=== PATIENT | female | born 1995 | race Caucasian/White ===

== ENCOUNTER → 2022-06-19 20:17 | Outpatient (ROUT) | payer BC, SELFPAY ==
[2022-06-19 20:32] LABS: Hemoglobin 12.7 g/dL (12.0-16.0); Mean Corpuscular HGB Conc 33.3 % (30-36); Mean Corpuscular Hemoglobin 30.3 PG (26-34); Mean Corpuscular Volume 90.8 fL (80-100); Platelet Count 290 X10^3/uL (150-400); Red Blood Cell Count 4.19 X10^6/uL (4.0-5.2); Red Cell Distribution Width 12.7 % (11.6-14.8); White Blood Cell Count 13.2 X10^3/uL (4.5-11.0)
[2022-06-20 20:22] LABS: HIV 1 & 2 Ab/Ag 4th Gen Combo NEGATIVE (NEGATIVE); Hepatitis B Surface Antigen NEGATIVE s/c (NEGATIVE); Rubella Antibody IgG 80.2 IU/mL (>15)
[2022-06-21 04:28] LABS: RPR Screen Non Reactive (Non Reactive)
[2022-06-21 10:18] LABS: Var-Zoster Immunity Screen 2031 index (Immune >165)
== END ==
PROVIDERS: Visit Provider Advanced Practice Midwife
DX: Z34.90 Encounter for supervision of normal pregnancy, unspecified, unspecified trimester (principal)
CPT/HCPCS: 85027; 86592; 86762; 86787; 86850; 86900; 86901; 87340; 87389; 87522

== ENCOUNTER 2023-01-06 14:11 | Inpatient (IN) | payer OTHER, SELFPAY ==
--- NOTE | 2023-01-06 14:19 | P.HPOB_ITS ---
OB HPI Date/Time Date of admission: 01/06/23 Date Patient Seen: 01/06/23 Time Patient Seen: 14:20 History of Present Condition Chief complaint: OBS OF LABOR Estimated Gestational Age (weeks): 39w0d : 1 Para: 0 Preadmission Labs Last OB Lab Results: Blood Type O Positive 06/19/22 15:00 Antibody Screen Negative 06/19/22 15:00 Hematocrit 38.0 % (36-46) 06/19/22 15:00 Hemoglobin 12.7 g/dL (12.0-16.0) 06/19/22 15:00 Hepatitis B Surface Antigen Negative s/c (NEGATIVE) 06/19/22 15 :00 Rubella Antibody 80.2 IU/mL (>15) 06/19/22 15:00
--- NOTE | 2023-01-06 14:44 | PM.OBHP.1 ---
OB HPI Date/Time Date of admission: 01/06/23 Date Patient Seen: 01/06/23 Time Patient Seen: 14:20 History of Present Condition Chief complaint: Preeclampsia : 1 Para: 0 Estimated Date of Delivery: 01/13/23 Estimated Gestational Age (weeks): 39w0d Narrative: Pau Renteria is a 27 year old female at 39w0d by sure LMP and concordant with 5 week and 10 week US. She is here for transfer of care from a planned home for labor management in the context of elevated blood pressures, increased proteinuria, denies headache, vision changes, right upper quadrant pain. Her CNM and SNMs will continue care. Her contractions have been consistent about every 3 minutes since 0400. Membranes intact, no leaking fluid or blood, she reports positive movement. She is coping well with the pain by breathing, position changes, and support from her Paul. She reports feeling so tired hungry and experiencing nausea. She had uncomplicated care with CNM established at 5 weeks. History of Present care: good care, initiated at week # (5), number of visits (10) and pounds weight gain (38) Dating criteria: LMP confirmed by 1st trimester US Ultrasounds: normal 1st trimester US and normal mid trimester US Obstetrical complications: preeclampsia Medical complications: none Preadmission Labs Blood type: O (+) positive -: Antibody screen: negative, Cystic fibrosis screen: unknown, GBS status: negative, HBsAG: negative, HIV: negative and RPR/VDLR: negative -: Chlamydia screen: not detected and Gonorrhea screen: not detected -: Rubella: immune and Varicella: immune HCT: 36.8 HCAB: negative Urine: Negative 1 hr GTT: 128 Narrative: 2nd trimester Hct 31, so initiated oral iron Prior (ies) History: Evaluation Evaluation Baseline heart rate: 135 Variability: Moderate (11-25) monitor accelerations: Present Monitor Decelerations: Absent Contraction Frequency (minutes): 3 Uterine Contraction Intensity: Strong/Firm Status: Category l Dilation (cm): 4 Effacement (%): 95 Dilation: 3-4 cm Effacement: >/=80% station: -1 Position of cervix: anterior Consistency: soft Sheriff score: 11 Comments: Cervical exam done at patient's home before transfer to hospital around 1300 PFSH Family History (Updated 01/06/23 @ 16:02 by Sherrie Kirkland CNM, DAVID) Grandfather Cancer Grandmother Heart disease Aunt Schizophrenia Social History (Updated 01/06/23 @ 16:03 by Sherrie Kirkland CNM, DAVID) marital status: household members: spouse and family lives independently: Yes caregiver/support person: No housing: house pets and animals: Yes (cat) education level: college occupational status: employed special francisco needs: No do you feel safe at home: Yes Smoking Status: Never smoker alcohol intake: never substance use type: does not use Meds Home Medications and Allergies Home Medications Medication Instructions Recorded Confirmed Type ferrous sulfate 142 mg (45 mg 142 mg PO DAILY 01/06/23 01/06/23 History iron) tablet,extended release (Slow Fe) no.58-iron bisglycinate 1 cap PO DAILY 01/06/23 01/06/23 History 10 mg iron-folic acid 400 mcg capsule Allergies Allergy/AdvReac Type Severity Reaction Status Date / Time No Known Drug Allergies Allergy Verified 01/06/23 15:55 Review of Systems Review of Systems Narrative: All WNL except what is discussed in HPI OB Exam Vital signs Blood Pressure: 134/81 Pulse Rate: 63 Temperature: 98.1 F Eyes General: appearance normal, both eyes and all related structures Resp Effort & Inspection: normal respiratory effort, able to speak in complete sentences and symmetric chest movement Auscultation: clear to auscultation bilaterally Cardio Rate: regular rate Rhythm: regular rhythm Heart Sounds: S1 normal and S2 normal Extremities Lower extremity: Yes normal to inspection and edema Laterality: bilateral DTR's: Rt Patellar: 2+ and Lt Patellar: 2+ External Female Exam: Yes normal external appearance Presentation: vertex Estimated Weight (lbs): 7 Amniotic Fluid: no fluid Objective Labs 01/06/23 22:25 01/06/23 22:25 Assessment and Plan Assessment and Plan Assessment and Plan narrative: A: G1PO at 39w0d Early labor Transfer of care from planned homebirth Preeclampsia without severe features GBS negative Rh positive Elevated WBC FHR Cat 1 P: Blood pressure checks Q4 Repeat labs at 2200 Continuous labor support Hydrotherapy, NO2, or theraputic rest as desired Continuous monitoring Expectant management of labor Anticipated NSVB
[2023-01-06 15:05] LABS: Add Manual Diff / Slide Review NO; Basophils Absolute Auto 100 /uL (0-100); Basophils Percent Auto 0.4 % (0-2); Eosinophils Absolute Auto 0 /uL (0-450); Hematocrit 34.4 % (36-46); Hemoglobin 11.8 g/dL (12.0-16.0); Lymphocytes Absolute Auto 1200 /uL (1100-4500); Lymphocytes Percent Auto 6.7 % (25-40); Mean Corpuscular HGB Conc 34.3 % (30-36); Mean Corpuscular Hemoglobin 31.4 PG (26-34); Mean Corpuscular Volume 91.7 fL (80-100); Monocytes Absolute Auto 700 /uL (0-900); Monocytes Percent Auto 3.6 % (3-14); Neutrophils Absolute Auto 16300 /uL (1500-7000); Neutrophils Percent Auto 89.3 % (50-75); Platelet Count 261 X10^3/uL (150-400); Red Blood Cell Count 3.76 X10^6/uL (4.0-5.2); Red Cell Distribution Width 13.2 % (11.6-14.8); White Blood Cell Count 18.2 X10^3/uL (4.5-11.0)
[2023-01-06 15:32] VITALS: BP 134/81
[2023-01-06 16:08] VITALS: BP 134/81; PULSE 63; TEMP 36.7
[2023-01-06] MEDS: ONDANSETRON 4 MG/2 ML INJ 8 MG IV ×2 (16:54→22:48)
--- NOTE | 2023-01-06 18:04 | P.CONS_ITS ---
History of Present Illness Consult details Date Patient Seen: 01/06/23 Time Patient Seen: 15:30 Chief complaint: Preeclampsia Reason for consult: Preeclampsia Requesting provider: Sherrie Kirkland Narrative: 27-year-old EDC 01/13/2023 now at 39 weeks by dates who was planning a home her director of gift planning but began having increasing blood pressures in early labor with no symptoms of preeclampsia but just ?not feeling right? and slight increase in proteinuria. Patient was transferred to Labor and delivery for monitoring for preeclampsia for her delivery. Meds Home Medications and Allergies Home Medications Medication Instructions Recorded Confirmed Type ferrous sulfate 142 mg (45 mg 142 mg PO DAILY 01/06/23 01/06/23 History iron) tablet,extended release (Slow Fe) no.58-iron bisglycinate 1 cap PO DAILY 01/06/23 01/06/23 History 10 mg iron-folic acid 400 mcg capsule Allergies Allergy/AdvReac Type Severity Reaction Status Date / Time No Known Drug Allergies Allergy Verified 01/06/23 15:55 Review of Systems Review of Systems Narrative: Per director of gift planning, patient denies headaches, scotomata, epigastric pain but just does not ?feel right?. She is had 1 episode of emesis and some mild nausea. Exam Vital Signs (past 8 hours): - 01/06/23 16:08 01/06/23 15:32 Temperature 98.1 F Pulse Rate 63 Blood Pressure 134/81 134/81 Narrative Exam Narrative: Patient has minimally elevated blood pressures. Fetus is vertex. Normal DTRs per director of gift planning. monitoring shows a baseline 130s with accelerations, no decelerations, Q 2-5 minute contractions of moderate quality. Admission cervical exam 3 cm, -1 station, intact bag of water. Objective Labs 01/06/23 14:25 Labs: Laboratory Results - last 24 hr 01/06/23 01/06/23 14:25 14:25 WBC 18.2 H RBC 3.76 L Hgb 11.8 L Hct 34.4 L MCV 91.7 MCH 31.4 MCHC 34.3 RDW 13.2 Plt Count 261 Neut % (Auto) 89.3 H Lymph % (Auto) 6.7 L Gaines % (Auto) 3.6 Eos % (Auto) 0.0 L Baso % (Auto) 0.4 Neut # (Auto) 08372 H Lymph # (Auto) 1200 Gaines # (Auto) 700 Eos # (Auto) 0 Baso # (Auto) 100 Blood Type O Positive Antibody Screen Negative PFSH Family History (Updated 01/06/23 @ 16:02 by Sherrie Kirkland CNM, [employer]) Grandfather Cancer Grandmother Heart disease Aunt Schizophrenia Social History marital status: household members: spouse and family lives independently: Yes caregiver/support person: No housing: house pets and animals: Yes (cat) education level: college occupational status: employed special francisco needs: No Safety do you feel safe at home: Yes Tobacco & Substance Use Smoking Status: Never smoker alcohol intake: never substance use type: does not use Assessment & Plan Assessment and plan (1) Pre-eclampsia affecting , antepartum: Status: Acute (2) 39 weeks gestation of : Status: Acute Assessment & Plan narrative: 39 week primigravida with increasing blood pressure during early labor with mild proteinuria but no other signs or symptoms of preeclampsia. At this point monitoring for worsening symptoms with planned vaginal delivery. No need for magnesium sulfate at this time. I will remain as biometrics consultant with Sherrie Kirkland CNM to remain as primary provider.
[2023-01-06] MEDS: LACTATED RINGERS 1,000 ML 1000 ML IV (18:14)
--- NOTE | 2023-01-06 18:22 | PM.OBPNLAB ---
Date/Time Date Patient Seen: 01/06/23 Time Patient Seen: 17:30 Pain Control Pain control: tolerating well and other (NO2) Comments: Pau is managing contractions well with NO2, breathing, and position changes with support of her at the bedside. She is feeling very tired. She has questions about epidural and labor augmentation interventions. Vitals BP: 143/84 Pulse: 65bpm Temp: 37.0*C SpO2: 98% Pelvic Exam Dilation (cm): 4.5 Effacement (%): 95 station: -1 Amniotic membrane status: Intact Contractions Contractions on admission: regular Monitor mode: External Contraction frequency (min): 3 Contraction pattern: Regular Contraction intensity: Strong/Firm Status status: Category l Heart Rate Baseline: 135 Monitor Accelerations: Present Monitor Decelerations: Absent Monitor Variability: Moderate Assessment and Plan Assessment: other (early labor) Plan: continuous present management Comments: A: at 39w0d Preeclampsia without severe features Patient desires epidural for pain management FHR Cat 1 Maternal exhaustion P: Call anesthesia to bedside to discuss combine spinal epidural Discussed r/b/a labor augmentation options: AROM and Pitocin Patient chooses Pitocin for labor augmentation Anticipate continuous labor management with Pitocin augmentation Begin Pitocin per protocol after patient is comfortable after epidural
--- NOTE | 2023-01-06 18:47 | PM.AN.REGBLK ---
Regional Block Pre-procedure Procedure: Continuous Lumbar Epidural for L&D Attending OB provider: Toño Dukes PMH/ROS narrative: Preeclampsia PSH/Anesthesia history narrative: None Exam narrative: WNL Labs: Hct 34.4 % (36-46) L 01/06/23 14:25 Plt Count 261 X10^3/uL (150-400) 01/06/23 14:25 Medications: Current Medications Generic Name Dose Route Start Last Admin Trade Name Freq PRN Reason Stop Dose Admin Calcium Carbonate 1,000 mg 01/06/23 14:51 Calcium Carbonate 500 Mg Tab PO Q4HR PRN Dyspepsia Carboprost Tromethamine 250 mcg 01/06/23 14:45 Carboprost 250 Mcg/Ml Ampul IM Q90M PRN Bleeding Fentanyl 100 mcg 01/06/23 14:45 Fentanyl 100 Mcg/2 Ml Inj IV Q1H PRN Pain, Severe (7-10) Hydralazine HCl 5 mg 01/06/23 15:20 Hydralazine 20 Mg/Ml Vial IV PRN PRN BP > 160/110 x2 Hydroxyzine HCl 50 mg 01/06/23 15:20 Hydroxyzine 50 Mg/Ml Inj IM PRN PRN Pain Management per Pt request Oxytocin/Lactated Ringer's 30 unit in 500 mls @ 200 mls/hr 01/06/23 14:45 Oxytocin Premix IV CONT PRN Bleeding Protocol Tranexamic Acid 1,000 mg/ 100 mls @ 200 mls/hr 01/06/23 14:45 Sodium Chloride IV NOW PRN Bleeding Lactated Ringer's 1,000 mls @ 1,000 mls/hr 01/06/23 18:13 01/06/23 18:14 Lactated Ringers IV 01/06/23 19:12 1,000 mls/hr NOW ONE Administration Labetalol HCl 20 mg 01/06/23 15:20 Labetalol 20 Mg/4 Ml Syringe IV PRN PRN BP > 160/110 x2 Lidocaine HCl 20 ml 01/06/23 14:45 Lidocaine 1% 20 Ml INJ INTRA-OP PRN Post Delivery Methylergonovine Maleate 0.2 mg 01/06/23 14:45 Methylergonovine 0.2 Mg Tablet PO Q6HR PRN Heavy Bleeding Methylergonovine Maleate 0.2 mg 01/06/23 14:45 Methylergonovine 0.2 Mg/Ml Vial IM NOW PRN Bleeding Misoprostol 800 mcg 01/06/23 14:45 Misoprostol 200 Mcg Tablet IA NOW PRN Bleeding Misoprostol 400 mcg 01/06/23 14:45 Misoprostol 200 Mcg Tablet SL NOW PRN Bleeding Morphine Sulfate 10 mg 01/06/23 15:20 Morphine 4 Mg/Ml Inj IM PRN PRN Pain Manaement per Pt request Naloxone HCl 0.2 mg 01/06/23 14:45 Naloxone 0.4 Mg/Ml Vial IV Q2MIN PRN Opiate Reversal Nifedipine 10 mg 01/06/23 15:25 Nifedipine 10 Mg Capsule PO PRN PRN BP>160/110 x2 Ondansetron HCl 8 mg 01/06/23 18:00 01/06/23 16:54 Ondansetron 4 Mg/2 Ml Inj IV 4 mg Q6HR JESÚS Administration Oxytocin 10 unit 01/06/23 14:45 Oxytocin 10 Unit/Ml Vial IM NOW PRN Bleeding Allergies: Allergies Allergy/AdvReac Type Severity Reaction Status Date / Time No Known Drug Allergies Allergy Verified 01/06/23 15:55 Procedure Insertion date: 01/06/23 Insertion time: 18:30 Prep/Local: betadine x3 and 1% lidocaine Interspace: L4-5 Patient position: sitting Needle: 18 gauge Malitead Loss of resistance with: air BABAR at (cm): 7 Catheter placed at SKIN (cm): 12 Catheter in SPACE (cm): 5 Initial Medications TEST DOSE time: 18:35 BOLUS DOSE time: 18:37 BOLUS DOSE (mL): 10 BOLUS DOSE med: 0.25% bupivacaine Infusion INFUSION: 0.125% bupivacaine and with fentanyl 2 mcg/mL Initial rate (mL/hr): 12 Post-procedure Anesthesia time START: 18:20
[2023-01-06] MEDS: OXYTOCIN PREMIX 30 UNIT/500 ML PLAST..BAG IV (19:59)
--- NOTE | 2023-01-06 22:13 | PM.OBPNLAB ---
Date/Time Date Patient Seen: 01/06/23 Time Patient Seen: 22:14 Pain Control Pain control: epidural Comments: Pau is resting comfortably with an epidural. The RN has been changing positions frequently and reports an unchanged cervical exam when pitocin started at 1999. Delay in pitocin administration due to pharmacy verification. Vitals BP: 90/55 Pulse: 66bpm Temp: 98.3 F RR: 16 SpO2: 98% Pelvic Exam Amniotic membrane status: Intact Comments: Not indicated at this time Contractions Monitor mode: External Pitocin rate (mU/min): 8 Contraction frequency (min): 3 (1-4min) Contraction duration (min): 1 (60-90 sec) Contraction pattern: Regular Contraction intensity: Strong/Firm Status status: Category l Heart Rate Baseline: 140 Monitor Accelerations: Present Monitor Decelerations: Absent Monitor Variability: Moderate Assessment and Plan Assessment: other (ongoing early labor management in the context of preeclampsia without severe features) Plan: continuous present management Comments: A: Term nullipara Early labor Preeclampsia without severe features Normotensive Epidural FHR Cat 1 P: Continuos labor management Reassess in 2 hours or sooner as indicated Anticipated NSVB
[2023-01-06 22:38] LABS: Add Manual Diff / Slide Review NO; Basophils Absolute Auto 100 /uL (0-100); Basophils Percent Auto 0.8 % (0-2); Eosinophils Absolute Auto 0 /uL (0-450); Eosinophils Percent Auto 0.1 % (2-4); Hemoglobin 10.9 g/dL (12.0-16.0); Lymphocytes Absolute Auto 2000 /uL (1100-4500); Lymphocytes Percent Auto 12.9 % (25-40); Mean Corpuscular HGB Conc 34.1 % (30-36); Mean Corpuscular Hemoglobin 31.6 PG (26-34); Mean Corpuscular Volume 92.8 fL (80-100); Monocytes Absolute Auto 1300 /uL (0-900); Neutrophils Absolute Auto 12500 /uL (1500-7000); Neutrophils Percent Auto 78.2 % (50-75); Platelet Count 236 X10^3/uL (150-400); Red Blood Cell Count 3.45 X10^6/uL (4.0-5.2); White Blood Cell Count 15.9 X10^3/uL (4.5-11.0)
[2023-01-06 22:48] LABS: Alanine Aminotransferase 17 IU/L (<35); Albumin 3.2 g/dL (3.5-5.0); Alkaline Phosphatase 152 U/L (38-126); Aspartate Aminotransferase 22 IU/L (14-36); BUN Creatinine Ratio 11.1 (6-22); Bilirubin Total 0.4 mg/dL (0.2-1.3); Blood Urea Nitrogen 7 mg/dL (7-17); Calcium 8.5 mg/dL (8.4-10.2); Carbon Dioxide 25 mmol/L (22-32); Chloride 104 mmol/L (98-107); Estimated Glomerular Filt Rate > 60 mL/min (>60); Globulin 3.2 g/dL (1.7-4.1); Glucose 88 mg/dL (70-100); HEMOLYSIS < 15 (0-50); Sodium 134 mmol/L (137-145); Total Protein 6.4 g/dL (6.3-8.2)
--- NOTE | 2023-01-06 23:06 | PM.OBPNLAB ---
Date/Time Date Patient Seen: 01/06/23 Time Patient Seen: 23:06 Pain Control Pain control: epidural Comments: Pau is resting comfortably on her right side with a peanut ball. Requested a cervical exam. Vitals: BP:116/75 Pulse: 74bpm SpO2: 100% Pelvic Exam Dilation (cm): 6 Effacement (%): 100 station: 0 Amniotic membrane status: Intact Contractions Monitor mode: External Pitocin rate (mU/min): 10 Contraction frequency (min): 3 (1-4min) Contraction duration (min): 1 Contraction pattern: Regular Contraction intensity: Strong/Firm Status status: Category l Heart Rate Baseline: 135 Monitor Accelerations: Present Monitor Decelerations: Absent Monitor Variability: Moderate Assessment and Plan Assessment: active labor Plan: continuous present management
[2023-01-07] MEDS: FENT 2MCG/ML BUPIV 0.125% EPI 200 MCG/100 ML PLAST..BAG 12 MCG EPIDURAL (00:42)
[2023-01-07 02:31] LABS: Creatinine Urine Random 52.9 mg/dL; Protein (Total) Urine Random 13 mg/dL (0-12); Protein Creatinine Ratio Urine 0.24 GRAM/24H
--- NOTE | 2023-01-07 03:06 | PM.OBPNLAB ---
Date/Time Date Patient Seen: 01/07/23 Time Patient Seen: 03:00 Pain Control Pain control: epidural Comments: CNM assumed care at 2300 and completed chart review. Pau was able to achieve pain relief with an additional epidural bolus and has been able to get some rest. Now feeling increased pressure lower down in her body. Paul remains supportive at her side. VS: BP 122/69, HR 75, T 98.1F Oral Pelvic Exam Dilation (cm): 10 Effacement (%): 100 station: 0 Amniotic membrane status: Leaking Comments: BBOW extending from vagina and draining clear fluid. Minimal movement of vertex with tiral push. Contractions Monitor mode: External Pitocin rate (mU/min): 17 Contraction frequency (min): 3 (1-4min) Contraction duration (min): 1 Contraction pattern: Regular Contraction intensity: Strong/Firm Status status: Category ll (overall reassuring) Heart Rate Baseline: 135 Monitor Accelerations: Present Monitor Decelerations: Variable Monitor Variability: Moderate Assessment and Plan Assessment: active labor Plan: continuous present management Comments: Labor down x 30 minutes and then begin pushing. Anticipate NSVB.
--- NOTE | 2023-01-07 04:39 | P.PCNOB_ITS ---
Events: Labor Augmentation Labor & Delivery Delivery date: 01/07/23 Intrapartal Events: Mild Preeclampsia Cervical ripening method: none Induction method: none Delivery augmentation: pitocin Delivery monitor: external FHT and external uterine Route of delivery: Episiotomy description: None L&D Laceration Description: Labial and Superficial Delivery repair: chromic (3.0) Quantitative Blood Loss: 150 Anesthesia Type: Epidural Narrative: Pushing initiated at C/C/+1. Kaytie pushed well with coaching and encouragement. Cat II FHR throughout second stage. NSVB of a viable baby boy in AYESHA position with copious terminal meconium. There was no nuchal cord and the shoulders delivered easily, without additional maneuvers. FOB and CNM with hands on at the . Allison was lifted to maternal abdomen by Pau and Paul for drying and stimulation. Apgars 7/9. Remaining 30 units of pitocin in 500mL LR was increased to 250mL/hr for active management of the third stage of labor. After cessation of pulsation, the cord was double clamped and cut. Cord blood sample was collected. Gentle cord traction and a single maternal push led to spontaneous, Schultze delivery of an pparently intact placenta, membranes and 3VC. Fundus immediately firm and bleeding minimal. Inspection of the vagina and perineum revealed bilateral 1st degree labial splits that were repaired with a single suture each, 3.0 chromic. QBL 150mL. Both mother and baby stable and skin to skin as I left the room. Allison Baby 1: gender: Male Presentation: vertex Position: Right Occiput Anterior Placenta delivery description: Spontaneous Cord Vessel Description: 3 Vessels score (1 min): 7 score (5 min): 8 weight: 3.819 kg Plan for aftercare: Routine care (with close monitoring of BPs )
[2023-01-07] MEDS: KETOROLAC 30 MG/ML VIAL IV (06:42)
--- NOTE | 2023-01-07 07:59 | PM.AN.REGBLK ---
Regional Block Pre-procedure Labs: Hct 32.0 % (36-46) L 01/06/23 22:25 Plt Count 236 X10^3/uL (150-400) 01/06/23 22:25 Medications: Current Medications Generic Name Dose Route Start Last Admin Trade Name Lionel PRN Reason Stop Dose Admin Acetaminophen 650 mg 01/07/23 05:21 Acetaminophen 325 Mg Tablet PO Q6HR PRN Pain, Mild (1-3) Benzocaine 1 spray 01/07/23 05:21 Dermoplast [place] 20% 60 Ml TOP Q1HR PRN perineal pain Carboprost Tromethamine 250 mcg 01/07/23 05:21 Carboprost 250 Mcg/Ml Ampul IM Q90MIN PRN Bleeding Emollient Ointment 1 applic 01/07/23 05:21 Lanolin Oint 7 Gm TOP PRN PRN Tenderness Tranexamic Acid 1,000 mg/ 100 mls @ 200 mls/hr 01/07/23 05:21 Sodium Chloride IV NOW PRN Bleeding Oxytocin/Lactated Ringer's 30 unit in 500 mls @ 200 mls/hr 01/07/23 05:21 Oxytocin Premix IV CONT PRN Bleeding Protocol Ibuprofen 600 mg 01/07/23 05:21 Ibuprofen 600 Mg Tablet PO Q6HR PRN Pain, Mild (1-3) Methylergonovine Maleate 0.2 mg 01/07/23 05:21 Methylergonovine 0.2 Mg/Ml Vial IM NOW PRN Bleeding Methylergonovine Maleate 0.2 mg 01/07/23 05:21 Methylergonovine 0.2 Mg Tablet PO Q6HR PRN Heavy bleeding Misoprostol 400 mcg 01/07/23 05:21 Misoprostol 200 Mcg Tablet SL NOW PRN Bleeding Misoprostol 1,000 mcg 01/07/23 05:21 Misoprostol 200 Mcg Tablet SD NOW PRN Bleeding Misoprostol 800 mcg 01/07/23 05:21 Misoprostol 200 Mcg Tablet SD NOW PRN Bleeding Naloxone HCl 0.2 mg 01/07/23 05:21 Naloxone 0.4 Mg/Ml Vial IV Q2MIN PRN Opiate Reversal Oxycodone HCl 5 mg 01/07/23 05:21 Oxycodone Ir 5 Mg Tablet PO Q4HR PRN Pain, Moderate (4-6) Oxytocin 10 unit 01/07/23 05:21 Oxytocin 10 Unit/Ml Vial IM NOW PRN Bleeding Rho Immune Globulin 1,500 unit 01/07/23 05:21 Rho(D) Immune Globulin 1,500 Unit Syringe IM NOW PRN Mom Rh neg, Rh pos Allergies: Allergies Allergy/AdvReac Type Severity Reaction Status Date / Time No Known Drug Allergies Allergy Verified 01/06/23 15:55 Post-procedure Anesthesia time START: 18:30 (01/06) Anesthesia time END: 04:11 (01/07) Post-procedure Anesthesia Assessment: Yes CV function: HR/BP stable, Yes Resp function: RR/sat/airway adequate, Yes Post-op hydration adequate, Yes Pain control adequate, Yes Nausea & vomiting absent, Yes Temperature > 36 C and Yes Mental status appropriate
--- NOTE | 2023-01-07 08:03 | PM.AN.REGBLK ---
Regional Block Pre-procedure Procedure: Continuous Lumbar Epidural for L&D Attending OB provider: Toño Dukes PMH/ROS narrative: Preeclamsia PSH/Anesthesia history narrative: None Exam narrative: WNL Labs: Hct 32.0 % (36-46) L 01/06/23 22:25 Plt Count 236 X10^3/uL (150-400) 01/06/23 22:25 Medications: Current Medications Generic Name Dose Route Start Last Admin Trade Name Freq PRN Reason Stop Dose Admin Acetaminophen 650 mg 01/07/23 05:21 Acetaminophen 325 Mg Tablet PO Q6HR PRN Pain, Mild (1-3) Benzocaine 1 spray 01/07/23 05:21 Dermoplast [place] 20% 60 Ml TOP Q1HR PRN perineal pain Carboprost Tromethamine 250 mcg 01/07/23 05:21 Carboprost 250 Mcg/Ml Ampul IM Q90MIN PRN Bleeding Emollient Ointment 1 applic 01/07/23 05:21 Lanolin Oint 7 Gm TOP PRN PRN Tenderness Tranexamic Acid 1,000 mg/ 100 mls @ 200 mls/hr 01/07/23 05:21 Sodium Chloride IV NOW PRN Bleeding Oxytocin/Lactated Ringer's 30 unit in 500 mls @ 200 mls/hr 01/07/23 05:21 Oxytocin Premix IV CONT PRN Bleeding Protocol Ibuprofen 600 mg 01/07/23 05:21 Ibuprofen 600 Mg Tablet PO Q6HR PRN Pain, Mild (1-3) Methylergonovine Maleate 0.2 mg 01/07/23 05:21 Methylergonovine 0.2 Mg/Ml Vial IM NOW PRN Bleeding Methylergonovine Maleate 0.2 mg 01/07/23 05:21 Methylergonovine 0.2 Mg Tablet PO Q6HR PRN Heavy bleeding Misoprostol 400 mcg 01/07/23 05:21 Misoprostol 200 Mcg Tablet SL NOW PRN Bleeding Misoprostol 1,000 mcg 01/07/23 05:21 Misoprostol 200 Mcg Tablet ID NOW PRN Bleeding Misoprostol 800 mcg 01/07/23 05:21 Misoprostol 200 Mcg Tablet ID NOW PRN Bleeding Naloxone HCl 0.2 mg 01/07/23 05:21 Naloxone 0.4 Mg/Ml Vial IV Q2MIN PRN Opiate Reversal Oxycodone HCl 5 mg 01/07/23 05:21 Oxycodone Ir 5 Mg Tablet PO Q4HR PRN Pain, Moderate (4-6) Oxytocin 10 unit 01/07/23 05:21 Oxytocin 10 Unit/Ml Vial IM NOW PRN Bleeding Rho Immune Globulin 1,500 unit 01/07/23 05:21 Rho(D) Immune Globulin 1,500 Unit Syringe IM NOW PRN Mom Rh neg, Rh pos Allergies: Allergies Allergy/AdvReac Type Severity Reaction Status Date / Time No Known Drug Allergies Allergy Verified 01/06/23 15:55 Procedure Insertion date: 01/06/23 Insertion time: 18:30 Prep/Local: betadine x3 and 1% lidocaine Interspace: L3-4 Patient position: sitting Needle: 18 gauge Malitead Loss of resistance with: air BABAR at (cm): 7 Catheter placed at SKIN (cm): 12 Catheter in SPACE (cm): 5 Initial Medications TEST DOSE time: 18:35 BOLUS DOSE time: 18:36 BOLUS DOSE (mL): 10 BOLUS DOSE med: 0.25% bupivacaine (Fentanyl 100mcg) Infusion INFUSION: 0.125% bupivacaine and with fentanyl 2 mcg/mL Initial rate (mL/hr): 12 Post-procedure Anesthesia time START: 18:30 (01/06) Anesthesia time END: 04:11 (01/07) Post-procedure Anesthesia Assessment: Yes CV function: HR/BP stable, Yes Resp function: RR/sat/airway adequate, Yes Post-op hydration adequate, Yes Pain control adequate, Yes Nausea & vomiting absent, Yes Temperature > 36 C, Yes Mental status appropriate and Yes Anesthesia complications
[2023-01-07] MEDS: ACETAMINOPHEN 325 MG TABLET 650 MG PO ×2 (13:23→19:28)
[2023-01-07] MEDS: IBUPROFEN 600 MG TABLET PO ×2 (13:24→19:28)
--- NOTE | 2023-01-07 19:46 | PM.OBDS.1 ---
Discharge Providers Provider Date of admission: 01/06/23 14:11 Discharge Date: 01/08/23 Consults: 01/06/23 14:45 Consult to Anesthesiology Urgent Comment: Consulting Provider: Anesthesiologist Reason for consultation: Epidural Has provider been notified: No 01/08/23 04:38 Consult to Microsoft Access Developer Routine Comment: Discharge provider: Sherrie Kirkland CNM, ARNP Summary Hospital Course Date Patient Seen: 01/08/23 Discharge Diagnosis (1) Pre-eclampsia affecting , antepartum: Status: Acute (2) 39 weeks gestation of : Status: Acute Time Spent with Patient Time attestation: Total time spent providing and/or coordinating discharge services: Objective Labs 01/06/23 22:25 01/06/23 22:25 Labs: Laboratory Results - last 24 hr 01/06/23 01/06/23 01/07/23 22:25 22:25 02:08 WBC 15.9 H RBC 3.45 L Hgb 10.9 L Hct 32.0 L MCV 92.8 MCH 31.6 MCHC 34.1 RDW 13.0 Plt Count 236 Neut % (Auto) 78.2 H Lymph % (Auto) 12.9 L [place] % (Auto) 8.0 Eos % (Auto) 0.1 L Baso % (Auto) 0.8 Neut # (Auto) 98643 H Lymph # (Auto) 2000 [place] # (Auto) 1300 H Eos # (Auto) 0 Baso # (Auto) 100 Sodium 134 L Potassium 4.0 Chloride 104 Carbon Dioxide 25 BUN 7 Creatinine 0.63 Estimated GFR > 60 BUN/Creatinine Ratio 11.1 Glucose 88 Calcium 8.5 Total Bilirubin 0.4 AST 22 ALT 17 Alkaline Phosphatase 152 H Total Protein 6.4 Albumin 3.2 L Globulin 3.2 Albumin/Globulin Ratio 1.0 U Random Total Protein 13 H Urine Creatinine 52.9 Protein/Creatinin Ratio 0.24 Exam Vital Signs (past 8 hours): 124/84 62 bpm 14/min 98.1 F temporal Other: Fundus firm at U, midline. Lochia scant Perineum intact with minimal edema Discharge Plan Discharge Plan Patient Disposition: Home Discharge orders & Medications Prescriptions: Continued Slow Fe 142 mg (45 mg iron) Tablet Extended Release 142 mg PO DAILY 10-400 mg-mcg Capsule 1 cap PO DAILY Follow up/Referrals: Sherrie Kirkland CNM, PARTS FACILITATOR [Advanced Licensed Tax Consultant] - 2 Weeks (and 6 weeks as scheduled. See e-mail for appointment dates and times.) Diet/Activity/Treatments Diet: Diet as Tolerated and Regular Diet comment: Increase fiber and hydration Activity: Low mora x 2 weeks Cold/Heat Therapy: as needed Skin/Wound/Dressing Care Skin care: usual care Report to your healthcare provider any signs of infection, such as:: chills, fever, unusual drainage and unusual redness Visit Report/Discharge Packet Stand Alone Forms: Patient Portal/API
[2023-01-08] MEDS: ACETAMINOPHEN 325 MG TABLET 650 MG PO ×2 (03:31→09:03)
[2023-01-08] MEDS: IBUPROFEN 600 MG TABLET PO ×2 (03:32→09:02)
[2023-01-08 13:16] VITALS: BP 124/84; PULSE 62; RESP 14; TEMP 36.7
== END 2023-01-08 13:15 | disposition home or self-care (01) | DRG 807 ==
PROVIDERS: Nurse Practitioner Obstetrics & Gynecology; Admitting Provider Advanced Practice Midwife; Referring Provider Advanced Practice Midwife; Visit Provider Advanced Practice Midwife
DX: O14.04 Mild to moderate pre-eclampsia, complicating childbirth (principal); Z37.0 Single live birth; Z3A.39 39 weeks gestation of pregnancy
CPT/HCPCS: 36415; 59050; 80053; 82570; 84156; 85025; 86850; 86900; 86901; G0379; J1885; J2405; J2590

== ENCOUNTER → 2024-04-20 13:47 | Outpatient (CLI) | payer OTHER, MEDICAID, SELFPAY ==
--- NOTE | 2024-04-20 13:50 | DI.US.S_ITS ---
PROCEDURE: US OB >= 14 WEEKS FETUS INDICATIONS: 20 WEEK ANATOMY SCAN OUTSIDE/PRIOR DATING DATA: Last menstrual period (LMP): 11/25/2023. Working ALEXI is 09/08/2024 TECHNIQUE: Real-time scanning was performed of the fetus, with image documentation and biometric measurements. COMPARISON: None. FINDINGS: General: A single living intrauterine gestation is present. Presentation: Transverse. Placenta: Placental position is posterior , without previa. Amniotic fluid index: 17 cm, normal range is 5-24 cm. Single deepest vertical pocket is 5.9 cm. heart rate: 155 beats per minute. Maternal cervical canal: 6.1 cm long. Normal lower limit is 2.5 cm. biometrics: Biparietal diameter: 4.8 cm, 20 weeks and 3 days Head circumference: 18.2 cm, 20 weeks and 4 days Abdominal circumference: 16.1 cm, 21 weeks and 2 days Femur length: 3.2 cm, 19 weeks and 6 days Clinically estimated gestational age: 19 weeks and 6 days Composite gestational age from present scan: 20 weeks and 4 days Estimated weight and percentile: 3 in 66 g, 86 percentile Anatomic survey: Neuro: Ventricles are non-dilated at less than 10 mm. Cisterna magna is normal at 3-11 mm. Cerebellum is normal in size and morphology. Nuchal skin fold: Normal at less than 6 mm between 14-21 weeks gestational age. Face: Nose and lips, facial profile are normal. Spine: No evidence for spina bifida. Heart: 4-chambered heart is present, with normal ventricular outflow tracts. Diaphragm: Diaphragm is intact. Stomach: Left-sided stomach is present. Kidneys: No hydronephrosis. Normal is less than 5 mm in 2nd trimester, less than 7 mm in 3rd trimester. Cord: 3-vessel cord has orthotopic insertion. Bladder: Normal in size. Extremities: All 4 extremities identified. IMPRESSION: Living intrauterine gestation with working ALEXI 09/08/2024. EFW is at the upper limit of normal, 86 percentile. Normal KARSTEN. No significant abnormalities on routine anatomic survey. Dictated by: Jorge Alberto Garibay M.D. on 04/20/2024 at 16:08 Approved by: Jorge Alberto Garibay M.D. on 04/20/2024 at 16:11
== END ==
PROVIDERS: Referring Provider Advanced Practice Midwife; Visit Provider Advanced Practice Midwife
DX: Z34.82 Encounter for supervision of other normal pregnancy, second trimester (principal); Z3A.20 20 weeks gestation of pregnancy
CPT/HCPCS: 76811

== ENCOUNTER → 2024-07-23 16:38 | Outpatient (CLI) | payer OTHER, SELFPAY ==
--- NOTE | 2024-07-23 16:40 | DI.US.S_ITS ---
PROCEDURE: US OB FOLLOW UP INDICATIONS: GROWTH OUTSIDE/PRIOR DATING DATA: Last menstrual period (LMP): 11/25/2023. LMP-based estimated date of delivery (ALEXI): 09/08/2024. First dating scan (date and location): Not applicable. Estimated date of delivery (ALEXI) from first dating scan: Not applicable. The calculations are made using the working ALEXI of 09/08/2024. TECHNIQUE: Real-time scanning was performed of the fetus, with image documentation and biometric measurements. Endovaginal scanning: Not performed COMPARISON: None. FINDINGS: General: A single living intrauterine gestation is present. Presentation: Vertex. Placenta: Placental position is posterior , without previa. Amniotic fluid index: 21.7 cm, normal range is 5-24 cm. Single deepest vertical pocket is 7.7 cm. heart rate: 139 beats per minute. Maternal cervical canal: 5.5 cm long. Normal lower limit is 2.5 cm. biometrics: Biparietal diameter: 8.4 cm, 33 weeks 5 days Head circumference: 31.2 cm, 34 weeks 6 days Abdominal circumference: 29.3 cm, 33 weeks 2 days Femur length: 6.5 cm, 33 weeks 4 days Clinically estimated gestational age: 33 weeks 2 days Composite gestational age from present scan: 33 weeks 6 days Estimated weight and percentile: 2223 g, 50 percentile Other: Not applicable. IMPRESSION: 1. Living 3rd trimester intrauterine with no sonographic evidence of complications. Normal interval growth. 2. Upper limits KARSTEN. We strive to produce accurate, complete, and clear reports of imaging services. To assist us in improving patient care, this report was composed using standard report templates and voice recognition software. Therefore, it may contain abnormal punctuation, insertions and/or omissions. Occasional wrong-word or sound-alike substitutions may occur. Though we review the report and make efforts to correct it, we do recommend that the report be read carefully in proper context to recognize any text inaccuracies. Dictated by: Jaren Jerome M.D. on 07/24/2024 at 6:42 Approved by: Jaren Jerome M.D. on 07/24/2024 at 6:45
== END ==
PROVIDERS: Referring Provider Advanced Practice Midwife; Visit Provider Advanced Practice Midwife
DX: O26.843 Uterine size-date discrepancy, third trimester (principal); Z3A.33 33 weeks gestation of pregnancy
CPT/HCPCS: 76816

== ENCOUNTER → 2024-08-12 10:35 | Outpatient (CLI) | payer OTHER, SELFPAY ==
--- NOTE | 2024-08-12 10:38 | DI.US.S_ITS ---
PROCEDURE: US OB BIOPHYSICAL PROFILE INDICATIONS: BPP WITH DOPPLERS OUTSIDE/PRIOR DATING DATA: Last menstrual period (LMP): 11/25/2023. LMP-based estimated date of delivery (ALEXI): 09/08/2024. TECHNIQUE: Real-time scanning was performed of the fetus for biophysical profile, with image documentation. Color and pulse Doppler interrogation was also performed of the umbilical artery near its insertion into the placenta. Endovaginal scanning: The not performed COMPARISON: [facility], , OB FOLLOW UP, 07/23/2024, 16:50. FINDINGS: General: A single living intrauterine gestation is present. Presentation: Vertex. Placenta: Placental position is fundal , without previa. Amniotic fluid index: 10 cm, normal range is 5-24 cm. Single deepest vertical pocket is 3.5 cm. heart rate: 160 beats per minute. Maternal cervical canal: Not seen Clinically estimated gestational age: 36 weeks, 1 day Biophysical profile: Tone: 2 points. Movement: 2 points. Respiration: 2 points. Largest pocket of fluid: 2 points. Umbilical artery Doppler: Umbilical 2.7, mid 2.6, placenta 2.2 IMPRESSION: 1. Single live intrauterine consistent with 36 weeks and 1 day. 2. Normal biophysical profile and umbilical artery Doppler. We strive to produce accurate, complete, and clear reports of imaging services. To assist us in improving patient care, this report was composed using standard report templates and voice recognition software. Therefore, it may contain abnormal punctuation, insertions and/or omissions. Occasional wrong-word or sound-alike substitutions may occur. Though we review the report and make efforts to correct it, we do recommend that the report be read carefully in proper context to recognize any text inaccuracies. Dictated by: Justice Jarvis M.D. on 08/12/2024 at 16:01 Approved by: Justice Jarvis M.D. on 08/12/2024 at 16:02
== END ==
PROVIDERS: Referring Provider Advanced Practice Midwife; Visit Provider Advanced Practice Midwife
DX: O26.619 Liver and biliary tract disorders in pregnancy, unspecified trimester (principal); Z3A.36 36 weeks gestation of pregnancy
CPT/HCPCS: 76819; 76820

== ENCOUNTER → 2024-08-13 13:09 | Outpatient (ROUT) | payer OTHER, SELFPAY ==
[2024-08-13 13:26] LABS: Alanine Aminotransferase 32 IU/L (<35); Albumin 3.4 g/dL (3.5-5.0); Albumin Globulin Ratio 1.1 (1.0-2.8); Alkaline Phosphatase 146 U/L (38-126); Aspartate Aminotransferase 29 IU/L (14-36); Bilirubin Total 0.4 mg/dL (0.2-1.3); Bilirubin Unconjugated 0.1 mg/dL (0.0-1.1); HEMOLYSIS < 15 (0-50); Total Protein 6.4 g/dL (6.3-8.2)
[2024-08-19 22:07] LABS: Total Bile Acids 5.2 umol/L (.); Ursodeoxycholic Acids 3.9 umol/L (.)
== END ==
PROVIDERS: Visit Provider Advanced Practice Midwife
DX: Z34.90 Encounter for supervision of normal pregnancy, unspecified, unspecified trimester (principal); L29.9 Pruritus, unspecified
CPT/HCPCS: 80076; 82542

== ENCOUNTER → 2024-08-18 11:17 | Outpatient (ROUT) | payer OTHER, SELFPAY ==
[2024-08-18 11:34] LABS: Add Manual Diff / Slide Review NO; Basophils Absolute Auto 100 /uL (0-100); Basophils Percent Auto 0.7 % (0-2); Eosinophils Absolute Auto 100 /uL (0-450); Hematocrit 33.3 % (36-46); Hemoglobin 11.3 g/dL (12.0-16.0); Lymphocytes Absolute Auto 1700 /uL (1100-4500); Lymphocytes Percent Auto 19.9 % (25-40); Mean Corpuscular HGB Conc 33.9 % (30-36); Mean Corpuscular Hemoglobin 31.1 PG (26-34); Mean Corpuscular Volume 91.9 fL (80-100); Monocytes Absolute Auto 700 /uL (0-900); Monocytes Percent Auto 8.5 % (3-14); Neutrophils Absolute Auto 6000 /uL (1500-7000); Neutrophils Percent Auto 69.9 % (50-75); Platelet Count 378 X10^3/uL (150-400); Red Blood Cell Count 3.62 X10^6/uL (4.0-5.2); Red Cell Distribution Width 13.2 % (11.6-14.8); White Blood Cell Count 8.7 X10^3/uL (4.5-11.0)
[2024-08-18 11:51] LABS: Alanine Aminotransferase 27 IU/L (<35); Albumin 3.6 g/dL (3.5-5.0); Albumin Globulin Ratio 1.2 (1.0-2.8); Alkaline Phosphatase 161 U/L (38-126); Aspartate Aminotransferase 29 IU/L (14-36); BUN Creatinine Ratio 10.8 (6-22); Bilirubin Total 0.4 mg/dL (0.2-1.3); Blood Urea Nitrogen 7 mg/dL (7-17); Calcium 9.2 mg/dL (8.4-10.2); Carbon Dioxide 22 mmol/L (22-32); Chloride 106 mmol/L (98-107); Estimated Glomerular Filt Rate > 60 mL/min (>60); Glucose 91 mg/dL (70-100); HEMOLYSIS < 15 (0-50); Potassium 4.2 mmol/L (3.4-5.1); Sodium 134 mmol/L (137-145); Total Protein 6.6 g/dL (6.3-8.2)
[2024-08-19 11:15] LABS: Strep Grp B PCR NEG for Grp B Strep
== END ==
PROVIDERS: Visit Provider Nurse Practitioner Obstetrics & Gynecology
DX: O26.619 Liver and biliary tract disorders in pregnancy, unspecified trimester (principal); Z36.85 Encounter for antenatal screening for Streptococcus B
CPT/HCPCS: 80053; 82239; 85025; 87653

== ENCOUNTER 2024-09-15 12:21 | Inpatient (IN) | payer OTHER, SELFPAY ==
--- NOTE | 2024-09-15 12:30 | PM.OBHP.1 ---
OB HPI Date/Time Date of admission: 09/15/24 Date Patient Seen: 09/15/24 Time Patient Seen: 15:00 History of Present Condition Chief complaint: obs : 2 Para: 1 Estimated Date of Delivery: 09/08/24 Estimated Gestational Age (weeks): 41 Narrative: Pau Renteria is a 29 year old female @ 41wks 0 days by sure LMP concordant with 9wk US presents for evaluation of tachycardia. 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 Has been mar regularly since last night, feeling mild contractions every 2-3 minutes. CE in clinic 5/5cm/75%/-2, BBOW. Feeling normal movement. No vaginal bleeding or leaking of fluid. Uncomplicated care with CNMs. Planning low intervention . , Darius, is present and supportive. History of Present care: good care, initiated at week # (9), number of visits (12) and pounds weight gain (36) Dating criteria: LMP confirmed by 1st trimester US Ultrasounds: normal 1st trimester US and normal mid trimester US Obstetrical complications: none Medical complications: other (anemia) Preadmission Labs Blood type: O (+) positive -: Antibody screen: negative, GBS status: negative, HBsAG: negative, HIV: negative and RPR/VDLR: negative -: Chlamydia screen: not detected and Gonorrhea screen: not detected -: Rubella: immune and Varicella: immune HCT: 33.3 HCAB: negative 1 hr GTT: 63 Prior (ies) History: 01/07/2023: NSVB @ [id number], 12hr labor, 1 hr second stage, epidural, labial laceration, 8#6oz male, preeclampsia Hx # Term Pregnancies: 1 Hx # Pregnancies: 0 Number of Living Children: 1 Multiple births: 0 Spontaneous abortions: 0 Ectopic pregnancies: 0 Elective abortions: 0 Evaluation Evaluation Baseline heart rate: 164 Variability: Minimal (3-5) monitor accelerations: Absent Monitor Decelerations: Early and Variable Contraction Frequency (minutes): 2 Uterine Contraction Intensity: Moderate Category of Tracing: Non-reactive Status: Category ll Dilation (cm): 6.5 Effacement (%): 95 Dilation: >/=5 cm Effacement: >/=80% station: -2 Position of cervix: posterior Consistency: soft Sheriff score: 9 PFSH Medical History (Updated 09/15/24 @ 15:21 by Mckayla Soto CNM) Pre-eclampsia affecting , antepartum Family History Grandfather Cancer Grandmother Heart disease Aunt Schizophrenia Social History marital status: household members: spouse and family lives independently: Yes caregiver/support person: No housing: house pets and animals: Yes (cat) education level: college occupational status: employed special francisco needs: No do you feel safe at home: Yes Smoking Status: Never smoker alcohol intake: never substance use type: does not use Meds Home Medications and Allergies Home Medications Medication Instructions Recorded Confirmed Type no.58-iron bisglycinate 1 cap PO DAILY 01/06/23 09/15/24 History 10 mg iron-folic acid 400 mcg capsule Allergies Allergy/AdvReac Type Severity Reaction Status Date / Time No Known Drug Allergies Allergy Verified 09/15/24 16:04 Review of Systems Review of Systems ROS: Yes All systems reviewed with the patient and are negative except as otherwise documented OB Exam Vital signs Blood Pressure: 134/86 Pulse Rate: 93 Temperature: 98.8 F Resp Effort & Inspection: normal respiratory effort and able to speak in complete sentences Auscultation: clear to auscultation bilaterally Cardio Rate: regular rate Rhythm: regular rhythm Heart Sounds: S1 normal and S2 normal Presentation: vertex Objective Labs 09/15/24 13:00 Assessment and Plan Assessment and Plan Assessment and Plan narrative: A: Late term Primipara Active labor Afebrile- does not meet diagnostic criteria for III Cat II FHR- tachycardia P: Admit, routine labor orders. 1L LR IVFB given with no significant change in FHR. Q1 hr temps. Given progression to spontaneous labor in the few hours since she was seen in clinic, will expectantly manage this labor. If things seem to slow, will consider AROM. Reassess in 4 hours or sooner, PRN. Time-Based Coding :: [TOTAL MINUTES] spent with patient and on the chart (including review of chart, obtaining history, exam, reviewing outside data, placing orders, documenting exam and treatment plan, and counseling patient) on [DATE].
[2024-09-15] MEDS: LACTATED RINGERS 1,000 ML 100 ML IV ×3 (12:56→18:59)
[2024-09-15 13:23] LABS: Add Manual Diff / Slide Review NO; Basophils Absolute Auto 100 /uL (0-100); Basophils Percent Auto 0.5 % (0-2); Eosinophils Absolute Auto 100 /uL (0-450); Eosinophils Percent Auto 0.3 % (2-4); Hematocrit 35.9 % (36-46); Hemoglobin 12.1 g/dL (12.0-16.0); Lymphocytes Absolute Auto 2000 /uL (1100-4500); Lymphocytes Percent Auto 12.4 % (25-40); Mean Corpuscular HGB Conc 33.8 % (30-36); Mean Corpuscular Hemoglobin 30.4 PG (26-34); Mean Corpuscular Volume 90.1 fL (80-100); Monocytes Absolute Auto 1300 /uL (0-900); Monocytes Percent Auto 8.4 % (3-14); Neutrophils Absolute Auto 12600 /uL (1500-7000); Neutrophils Percent Auto 78.4 % (50-75); Platelet Count 314 X10^3/uL (150-400); Red Blood Cell Count 3.99 X10^6/uL (4.0-5.2); Red Cell Distribution Width 14.1 % (11.6-14.8); White Blood Cell Count 16.1 X10^3/uL (4.5-11.0)
[2024-09-15 15:27] VITALS: BP 134/86; PULSE 93; TEMP 37.1
[2024-09-15 16:00] VITALS: BP 134/86
--- NOTE | 2024-09-15 19:40 | PM.OBPNLAB ---
Date/Time Date Patient Seen: 09/15/24 Time Patient Seen: 18:15 Pain Control Pain control: epidural Comments: Pau is a 29 year old in active labor. She has been working hard and has had the urge to push, requested exam and was disappointed to find out she was not completely dilated. Pau asked for an epidural, and is now resting comfortably, well supported by Paul. VS: BP 117/57 HR 93 bpm SpO2 100% Temp 36.9 C Pelvic Exam Dilation (cm): 8.5 Effacement (%): 95 station: 0 Amniotic membrane status: Bulging Contractions Monitor mode: External Contraction frequency (min): 2 Contraction duration (min): 1 Contraction pattern: Regular Contraction intensity: Moderate Status status: Category ll Heart Rate Baseline: 160 Monitor Accelerations: Absent (incomplete tracing) Monitor Decelerations: Absent (unsure; incomplete tracing) Monitor Variability: Moderate Assessment and Plan Comments: A: at 41w0d GBS negative FHR Cat 2 Active labor History of pre-eclampsia with P1 Mild anemia Elevated WBC on admission Afebrile P: Continue present management Let Pau rest and then recheck cervix Anticipate NSVB
--- NOTE | 2024-09-15 20:07 | PM.AN.REGBLK ---
Regional Block Pre-procedure PMH/ROS narrative: active labor second delivery Labs: Hct 35.9 % (36-46) L 09/15/24 13:00 Plt Count 314 X10^3/uL (150-400) 09/15/24 13:00 Medications: Current Medications Generic Name Dose Route Start Last Admin Trade Name Freq PRN Reason Stop Dose Admin Calcium Carbonate 1,000 mg 09/15/24 12:28 Calcium Carbonate 500 Mg Tab PO Q2HR PRN Dyspepsia Carboprost Tromethamine 250 mcg 09/15/24 12:28 Carboprost 250 Mcg/Ml Ampul IM Q90M PRN Bleeding Diphenhydramine HCl 25 mg 09/15/24 19:58 Diphenhydramine 50 Mg/Ml Vial IV Q10M PRN Pruritis Ephedrine Sulfate 10 mg 09/15/24 19:58 Ephedrine 50 Mg/Ml Vial IV Q5M PRN Blood pressure decrease more than 20% of baseline. Fentanyl 100 mcg 09/15/24 12:28 Fentanyl 100 Mcg/2 Ml Inj IV Q1H PRN Pain, Severe (7-10) Oxytocin/Lactated Ringer's 30 unit in 500 mls @ 200 mls/hr 09/15/24 12:28 Oxytocin Premix IV CONT PRN Bleeding Protocol Tranexamic Acid 1,000 mg/ 100 mls @ 600 mls/hr 09/15/24 12:28 Sodium Chloride IV NOW PRN Bleeding Oxytocin/Lactated Ringer's 30 unit in 500 mls @ 2 mls/hr 09/15/24 12:30 Oxytocin Premix IV TITRATE JESÚS Protocol 2 MILLIUNIT/MIN Lactated Ringer's 1,000 mls @ 100 mls/hr 09/15/24 12:30 09/15/24 18:59 Lactated Ringers IV 09/15/24 22:29 100 mls/hr CONT JESÚS Administration FENT 2MCG/ML BUPIV 0.125% EPI 200 mcg in 100 mls @ 8 mls/hr 09/15/24 20:00 Fentanyl/Bupiv/Ns 2mcg/Ml - 0.125% EPIDURAL CONT JESÚS Lidocaine HCl 20 ml 09/15/24 12:28 Lidocaine 1% 20 Ml INJ INTRA-OP PRN Post Delivery Methylergonovine Maleate 0.2 mg 09/15/24 12:28 Methylergonovine 0.2 Mg Tablet PO Q6HR PRN Heavy Bleeding Methylergonovine Maleate 0.2 mg 09/15/24 12:28 Methylergonovine 0.2 Mg/Ml Vial IM NOW PRN Bleeding Mineral Oil 30 ml 09/15/24 12:28 Mineral Oil 30 Ml Udc TOP PRN PRN Version Misoprostol 800 mcg 09/15/24 12:28 Misoprostol 200 Mcg Tablet SD NOW PRN Bleeding Misoprostol 400 mcg 09/15/24 12:28 Misoprostol 200 Mcg Tablet SL NOW PRN Bleeding Nalbuphine HCl 2.5 mg 09/15/24 19:58 Nalbuphine 20 Mg/Ml Ampul IV Q10M PRN Pruritis Naloxone HCl 0.2 mg 09/15/24 12:28 Naloxone 0.4 Mg/Ml Vial IV Q2MIN PRN Opiate Reversal Ondansetron HCl 4 mg 09/15/24 12:28 Ondansetron 4 Mg/2 Ml Inj IV Q4HR PRN Nausea And Vomiting Oxytocin 10 unit 09/15/24 12:28 Oxytocin 10 Unit/Ml Vial IM NOW PRN Bleeding Allergies: Allergies Allergy/AdvReac Type Severity Reaction Status Date / Time No Known Drug Allergies Allergy Verified 09/15/24 16:04 --: pt drape and prep with sterile technique l3 l4 is id. lido 1% 3 cc skin wheel. tuohy advanced. BABAR with saline. CSE with 27 g pp needle, 0.5mL lido 1% given via spinal needle. +csf. - heme no paresthesia. Procedure Insertion date: 09/15/24 Insertion time: 18:23 Prep/Local: betadine x3 (chlorhexadine) Interspace: l3 l4 Patient position: sitting Needle: 18 gauge Malitead Loss of resistance with: saline BABAR at (cm): 6 Catheter placed at SKIN (cm): 15 Catheter in SPACE (cm): 15 Sensory level: t8 Initial Medications TEST DOSE time: 18:24 TEST DOSE: 1.5% lidocaine with epinephrine 1:200k (mL): 3 BOLUS DOSE time: 18:26 BOLUS DOSE (mL): 3 BOLUS DOSE med: other (infusate) Infusion INFUSION: 0.125% bupivacaine and with fentanyl 2 mcg/mL Initial rate (mL/hr): 8 Subsequent interventions: n/a Post-procedure Anesthesia date START: 09/15/24 Anesthesia time START: 18:12 Anesthesia date END: 09/15/24 Anesthesia time END: 21:05 Post-procedure Anesthesia Assessment: Yes CV function: HR/BP stable, Yes Resp function: RR/sat/airway adequate, Yes Post-op hydration adequate, Yes Pain control adequate, Yes Nausea & vomiting absent, Yes Temperature > 36 C and Yes Mental status appropriate
--- NOTE | 2024-09-15 21:16 | PM.OBPRVD ---
Events: Meconium Stained Fluid Labor & Delivery Delivery date: 09/15/24 Delivery Time: 20:45 Induction method: none Delivery monitor: external FHT Route of delivery: Episiotomy description: None L&D Laceration Description: None Quantitative Blood Loss: 562 Anesthesia Type: Epidural Narrative: Labor progressed well and Pau was comfortable with epidural. Prior to pushing. FHR was cat II until approx 1 hour prior to delivery. SROM with moderate meconium noted at 2016 when Pau asked to turn over; RT was invited and present for delivery. Pau was feeling pressure, and when she turned on her back, the vertex was visible at the introitus. She started actively pushing at 2039 and pushed effectively for a short 2nd stage. FHR was cat I throughout 2nd stage. NSVB of baby at 2044, with copious meconium stained fluid. His shoulders delivered with four handed traction by CNM and SNM and maternal efforts and then baby was given to Pau when she was ready to receive him. Baby was stunned, with poor tone and irregular respiratory effort but with vigorous stimulation, he cried well at 1 min 34 seconds. Apgars 5 and 9. Pitocin started for AMTSL at 334 ml/min. Pau & her son remained skin to skin while cord was cut and placenta was delivered after gush of blood noted, so separation was suspected. Placenta delivered spontaneously with maternal efforts and appeared to be intact. 3 vessel cord clamped and cut by student gastroenterology nurse practitioner at 9 minutes of life after cord pulsing had stopped. Cord blood collected for blood typing. Perineum inspected and found to be intact. Blood loss measured and estimated loss is 562 mL. Mom and baby left stable and is being initiated. Pau and Paul are thrilled to meet their second son, Tavo. Sherrie HERNANDEZ, CNM, IBCLC and Sharmin Dubose, RN, SNM Baby 1: gender: Male Presentation: vertex Position: Left Occiput Anterior Placenta delivery description: Spontaneous and Normal Configuration Cord Vessel Description: 3 Vessels score (1 min): 5 score (5 min): 9 weight: 4.447 kg Plan for aftercare: Routine care
[2024-09-15] MEDS: KETOROLAC 30 MG/ML VIAL IV (23:37)
[2024-09-16] MEDS: ACETAMINOPHEN 325 MG TABLET 650 MG PO ×3 (02:25→16:45)
[2024-09-16] MEDS: DERMOPLAST SPRAY 20% 60 ML 1 SPRAY TOP (08:43)
[2024-09-16] MEDS: LANOLIN OINT 7 GM 1 APPLIC TOP (08:43)
[2024-09-16] MEDS: WITCH HAZEL/GLYCERIN PADS 1 EACH TOP (08:43)
[2024-09-16] MEDS: IBUPROFEN 600 MG TABLET PO (12:35)
--- NOTE | 2024-09-16 15:07 | P.DS_ITS ---
Discharge Providers Provider Date of admission: 09/15/24 12:21 Discharge Date: 09/16/24 Primary care physician: Doctor Mylene MD Consults: 09/16/24 21:52 Consult to Internet Marketing Executive Routine Comment: Discharge provider: Sherrie Kirkland CNM, ARNP Summary Hospital Course Date Patient Seen: 09/16/24 Time Patient Seen: 15:09 Diagnoses: O80 Hospital Course: Pau was admitted for non reassuring NST but was already in labor. Progressed without augmentation and pushed for NSVB of viable baby boy. QBL 562 mL. Intact perineum. . Normal course. Peripartum Data Infant Delivery Method: Natural Vaginal Laceration Description: None 1: Gender: Male Disposition of : home Discharge Diagnosis (1) Encounter for supervision of other normal , third trimester: Status: Acute (2) Delivery in a completely normal case: Status: Acute (3) Lactating mother: Status: Acute Status at Discharge Cognitive/behavioral status at discharge: oriented and calm Functional status at discharge: independent ambulation Overall status at discharge: patient is progressing back to baseline Time Spent with Patient Time attestation: Total time spent providing and/or coordinating discharge services: Time spent: Less than 30 minutes Specific discharge activities: discharge teaching Objective Labs 09/15/24 13:00 Exam Vital Signs (past 8 hours): BP: 100/64 - 130/59 HR: 70-100 bpm RR: 15-18/min SpO2: 98% Temp: 98-99.7 F Other: Fundus firm at U, midline. Lochia scant Perineum intact with minimal edema Discharge Plan Discharge Plan Patient Disposition: Home Discharge orders & Medications Prescriptions: Continued PNV comb no.58-iron bisgly-FA 10-400 mg-mcg Capsule 1 cap PO DAILY Medication counseling provided by Pharmacist: No Follow up/Referrals: Sherrie Kirkland CNM, ARNP [Advanced Java Groovy Developer] - 2 Weeks (2 and 6 week visits scheduled at [facility]) Doctor Chakraborty MD [Primary Care Provider] - Diet/Activity/Treatments Diet: Diet as Tolerated and Regular Diet comment: increase fiber and fluid for healing Activity: Low mora x 2 weeks Cold/Heat Therapy: as needed Skin/Wound/Dressing Care Skin care: usual care Report to your healthcare provider any signs of infection, such as:: chills, fever, unusual drainage and unusual redness Visit Report/Discharge Packet Instructions: DI for Depression Stand Alone Forms: Patient Portal/API, Stroke Signs & Symptoms Discharge Data Primary Care Provider: Miscellaneous,Doctor
[2024-09-16 17:16] VITALS: BP 112/72; PULSE 75; RESP 15; TEMP 36.7
== END 2024-09-16 17:25 | disposition home or self-care (01) | DRG 560 ==
PROVIDERS: Admitting Provider Nurse Practitioner Obstetrics & Gynecology; Referring Provider Nurse Practitioner Obstetrics & Gynecology; Visit Provider Nurse Practitioner Obstetrics & Gynecology
DX: O48.0 Post-term pregnancy (principal); Z3A.41 41 weeks gestation of pregnancy; Z37.0 Single live birth; O76 Abnormality in fetal heart rate and rhythm complicating labor and delivery
CPT/HCPCS: 36415; 59050; 85025; 86850; 86900; 86901; G0379; J1885